=== PATIENT | female | born 1980 ===

== ENCOUNTER 2016-12-31 20:10 | Emergency (ER) | payer SELFPAY ==
[2016-12-31 20:34] VITALS: BP 122/77; PULSE 88; TEMP 98.5; O2SAT 99
--- NOTE | 2016-12-31 21:14 | C.PDOC ---
History Of Present Illness 36 year old patient presents to the ED complaining of a sore throat for the past 3 weeks. Patient notes bumps in her throat. Her symptoms didn't resolve which prompted her visit. Patient also complains of pressure in her ears, fever , and pain with swallowing. Patient denies vomiting, cough, shortness of breath , chest pain or ear pain. Time Seen by Provider: 12/31/16 20:36 Chief Complaint (Nursing): ENT Problem History Per: Patient History/Exam Limitations: no limitations Onset/Duration Of Symptoms: Other (3 weeks) Current Symptoms Are (Timing): Still Present Context: Other Severity: Mild Pain Scale Rating Of: 3 Quality: "Pain" Exacerbating Factors: None Alleviating Factors: None Recent travel outside of the [place]: No Past Medical History Reviewed: Historical Data, Nursing Documentation, Vital Signs Vital Signs: Last Vital Signs Temp 98.5 F 12/31/16 20:31 Pulse 88 12/31/16 20:31 Resp 20 12/31/16 21:21 BP 122/77 12/31/16 20:31 Pulse Ox 99 12/31/16 21:49 Surgical History: Appendectomy Family History: States: Unknown Family Hx - Social History Hx Alcohol Use: No Hx Substance Use: No - Immunization History Hx Tetanus Toxoid Vaccination: No Hx Influenza Vaccination: No Hx Pneumococcal Vaccination: No Review Of Systems Except As Marked, All Systems Reviewed And Found Negative. Constitutional: Positive for: Fever ENT: Positive for: Throat Pain, Other (difficulty swallowing; pressure in ears) . Negative for: Ear Pain Cardiovascular: Negative for: Chest Pain Respiratory: Negative for: Cough, Shortness of Breath Gastrointestinal: Negative for: Vomiting Physical Exam - Physical Exam Appears: Non-toxic, No Acute Distress Skin: Warm, Dry, No Pale, No Rash Head: Atraumatic, Normacephalic Eye(s): bilateral: Normal Inspection, PERRL, EOMI Ear(s): Bilateral: Normal Nose: Normal Oral Mucosa: Moist Throat: Normal, Erythema (mild erythematous papules), No Exudate Neck: Normal ROM, Supple Lymphatic: Adenopathy (left cervical ) Chest: Symmetrical Cardiovascular: Rhythm Regular, No Friction Rub, No Murmur Respiratory: Normal Breath Sounds, No Rales, No Rhonchi, No Wheezing Gastrointestinal/Abdominal: Soft, No Tenderness Extremity: Normal ROM Neurological/Psych: Oriented x3, Normal Speech, Normal Motor Gait: Steady ED Course And Treatment O2 Sat by Pulse Oximetry: 99 (RA) Pulse Ox Interpretation: Normal Progress Note: Plan: Amoxicillin and Motrin Disposition - Disposition Referrals: [facility] at [facility] [Outside] Disposition: HOME/ ROUTINE Disposition Time: 21:11 Condition: GOOD Additional Instructions: Follow up with the medical doctor within 1-2 days without fail. Return if worsened. 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 - Scribe Statement The provider has reviewed the documentation as recorded by the Scribe Chloe Cook All medical record entries made by the Scribe were at my direction and personally dictated by me. I have reviewed the chart and agree that the record accurately reflects my personal performance of the history, physical exam, medical decision making, and the department course for this patient. I have also personally directed, reviewed, and agree with the discharge instructions and disposition.
[2016-12-31 21:22] VITALS: RESP 20
== END 2016-12-31 21:21 | disposition home or self-care (01) ==
LOC: C.ER 20:10 → SUPCPDRO 20:10 → C.ER 21:21
DX: J02.9 Acute pharyngitis, unspecified (principal)

== ENCOUNTER 2018-03-12 12:27 | Emergency (ER) | payer OTHER ==
[2018-03-12 12:34] VITALS: RESP 18; O2SAT 100
[2018-03-12] MEDS ORDERED: Sodium Chloride 0.9% 1,000 ML IV ONE ×2 (13:25→15:13)
[2018-03-12 13:54] LABS: BASO # 0.1 K/uL (0.0-0.2); BASO % 0.5 % (0.0-2.0); EOS % 0.1 % (0.0-4.0); HEMOGLOBIN 13.1 g/dL (11.0-16.0); LYMPH # 1.3 K/uL (1.0-4.3); LYMPH % 8.5 % (20.0-40.0); MEAN CELL VOLUME 88.7 fL (81.0-99.0); MEAN CORPUSCULAR HEMOGLOBIN 30.9 pg (27.0-31.0); MEAN CORPUSCULAR HGB CONC 34.9 g/dL (33.0-37.0); MEAN PLATELET VOLUME 8.5 fL (7.2-11.7); MONO # 1.2 K/uL (0.0-0.8); MONO % 7.9 % (0.0-10.0); NRBC % 0.1 % (0.0-2.0); PLATELET COUNT 262 K/uL (130-400); RBC 4.24 Mil/uL (3.80-5.20); RED CELL DISTRIBUTION WIDTH 13.3 % (11.5-14.5); WHITE BLOOD COUNT 15.6 K/uL (4.8-10.8)
[2018-03-12 14:01] LABS: HCG,QUALITATIVE URINE NEGATIVE (NEGATIVE)
[2018-03-12 14:05] LABS: ALBUMIN 4.1 g/dL (3.5-5.0); ALT/SGPT 29 U/L (9-52); AST/SGOT 23 U/L (14-36); BLOOD UREA NITROGEN 7 mg/dL (7-17); CALCIUM 9.1 mg/dl (8.6-10.4); GFR AFRICAN-AMERICAN > 60; GFR NON-AFRICAN AMERICAN > 60; LIPASE 93 U/L (23-300)
[2018-03-12 14:08] LABS: SQUAMOUS EPITHIAL 1 /hpf (0-5); URINE BACTERIA OCC (<OCC); URINE BILIRUBIN NEGATIVE (NEGATIVE); URINE BLOOD 2+ (NEGATIVE); URINE CLARITY Hazy (Clear); URINE COLOR Yellow (YELLOW); URINE GLUCOSE (UA) NORMAL (Normal); URINE LEUKOCYTE ESTERASE 2+ Leu/uL (Negative); URINE PROTEIN NEGATIVE (NEGATIVE); URINE UROBILINOGEN NORMAL mg/dL (0.2-1.0)
[2018-03-12] MEDS ORDERED: cefTRIAXone IV 1 gm in Dextros 50 ML IV ONE (14:22)
[2018-03-12 14:55] LABS: LYMPHOCYTE 6 % (20-40); MONOCYTE 7 % (0-10); NEUTROPHIL 87 % (50-75); PLATELET ESTIMATE NORMAL (NORMAL); TOTAL CELLS COUNTED 100
[2018-03-12] MEDS ORDERED: cefTRIAXone IV 1 gm in Dextros 50 ML IVPB ONE (15:05)
--- NOTE | 2018-03-12 15:09 | C.PDOC ---
History Of Present Illness 37 y/o female presents to the ED complaining of urinary frequency, malaise, and fevers for the last week. Reports PMHx of frequent UTIs. Patient states she last took antibiotics 1 month ago, prescribed by her OBGYN. Denies any vomiting at home. On arrival temp is 100.4 Time Seen by Provider: 03/12/18 13:13 Chief Complaint (Nursing): Flu-like Symptoms History Per: Patient History/Exam Limitations: no limitations Onset/Duration Of Symptoms: Days Current Symptoms Are (Timing): Still Present Past Medical History Reviewed: Historical Data, Nursing Documentation, Vital Signs Vital Signs: Last Vital Signs Temp 98.7 F 03/12/18 15:50 Pulse 88 03/12/18 15:50 Resp 18 03/12/18 15:50 BP 104/64 03/12/18 15:50 Pulse Ox 100 03/12/18 16:42 - Medical History Other PMH: recurrent UTIs Surgical History: Appendectomy Family History: States: Unknown Family Hx - Social History Hx Alcohol Use: No Hx Substance Use: No - Immunization History Hx Tetanus Toxoid Vaccination: No Hx Influenza Vaccination: No Hx Pneumococcal Vaccination: No Review Of Systems Except As Marked, All Systems Reviewed And Found Negative. Constitutional: Positive for: Fever, Malaise Gastrointestinal: Negative for: Vomiting, Diarrhea Genitourinary: Positive for: Frequency Physical Exam - Physical Exam Appears: Non-toxic, No Acute Distress Skin: Normal Color, Warm, Dry Head: Atraumatic, Normacephalic Eye(s): bilateral: Normal Inspection, PERRL, EOMI Nose: Normal Oral Mucosa: Moist Neck: Normal ROM, Supple Chest: Symmetrical Cardiovascular: Rhythm Regular, No Murmur Respiratory: Normal Breath Sounds, No Rales, No Rhonchi, No Wheezing Gastrointestinal/Abdominal: Soft, No Tenderness, No Guarding Back: CVA Tenderness (Left), No Vertebral Tenderness Extremity: Bilateral: Atraumatic, Normal Color And Temperature, Normal ROM Neurological/Psych: Oriented x3, Normal Speech ED Course And Treatment - Laboratory Results Result Diagrams: 03/12/18 13:50 03/12/18 13:50 Lab Interpretation: Abnormal (UA 965 WBC's) Urine POC: Negative O2 Sat by Pulse Oximetry: 100 (RA) Pulse Ox Interpretation: Normal - Other Rad obstructive series X-Ray: Read By Radiologist Interpretation: Findings: Lung pereira are clear. Few dilated loops of small bowel seen within the left upper abdomen. Moderate to severe fecal retention in the colon. 1.7 centimeter radiopaque calcification projects over the left saw abdomen which may represent a large renal calculus. Impression: Few dilated loops of small bowel seen within the left upper abdomen. Moderate to severe fecal retention in the colon. 1.7 centimeter radiopaque calcification projects over the left saw abdomen which may represent a large renal calculus. Progress Note: rocephin IV, IVF, toradol IV Reevaluation Time: 15:08 Reassessment Condition: Improved Medical Decision Making Medical Decision Making: Initial Impression: frequent UTI's, now with UTI/Pyelo Time: 13:25 Initial Plan: --CMP --CBC --Lipase --UA --Urine preg --Urine culture --Blood culture --X-ray obstructive series --IV fluids --30 mg IV Toradol Labs reviewed. Pt started on IV rocephin. Pt is medically stable no n/v, ok for opt tx will d/c with cephalexin Disposition Doctor Will See Patient In The: Office Counseled Patient/Family Regarding: Studies Performed, Diagnosis, Need For Followup, Rx Given - Disposition Referrals: [facility] [Outside] [facility] [Outside] Disposition: HOME/ ROUTINE Disposition Time: 15:08 Condition: GOOD Additional Instructions: rodolfo much agua Keflex 500 mg (antibiotico) 2 veces al jamila por 10 barron (rodolfo el curso COMPLETO) tylenol 1000 mg o' Ibuprofeno 600 mg cada 6 horas miguel angel necessario para dolor/ fiebre (va tener fiebre 2-3 barron mas) Sigue en [facility] miguel angel necessario Prescriptions: Cephalexin [cephalexin] 500 mg PO BID #18 cap Instructions: Kidney Infection (DC) Forms: [facility] (German) Print Language: AMHARIC - POA Present On Arrival: None - Clinical Impression Clinical Impression: Pyelonephritis - Scribe Statement The provider has reviewed the documentation as recorded by the Scribe (Rashida Castrejon) Provider Attestation: All medical record entries made by the Scribe were at my direction and personally dictated by me. I have reviewed the chart and agree that the record accurately reflects my personal performance of the history, physical exam, medical decision making, and the department course for this patient. I have also personally directed, reviewed, and agree with the discharge instructions and disposition.
[2018-03-12] MEDS ORDERED: Sodium Chloride 0.9% 1,000 ML ONE (15:16)
[2018-03-12 15:51] VITALS: BP 104/64; PULSE 88; TEMP 98.7
--- NOTE | 2018-03-12 16:03 | RAD ---
Abdomen four views History: Abdominal pain. Comparison: None available. Findings: Lung pereira are clear. Few dilated loops of small bowel seen within the left upper abdomen. Moderate to severe fecal retention in the colon. 1.7 centimeter radiopaque calcification projects over the left saw abdomen which may represent a large renal calculus. Impression: Few dilated loops of small bowel seen within the left upper abdomen. Moderate to severe fecal retention in the colon. 1.7 centimeter radiopaque calcification projects over the left saw abdomen which may represent a large renal calculus.
== END 2018-03-12 15:52 | disposition home or self-care (01) ==
LOC: C.ER 12:27
DX: N12 Tubulo-interstitial nephritis, not specified as acute or chronic (principal); Z87.440 Personal history of urinary (tract) infections
CPT/HCPCS: 74022; 80053; 81001; 83690; 84703; 85025; 87040; 87086; 87181; 96361; 96374; 96375; 99285; J0696; J1885; J7030